=== PATIENT | male | born 1945 | race Caucasian/White ===

== ENCOUNTER → 2018-10-17 | Outpatient (CLI) | payer MEDICARE ==
--- NOTE | 2018-10-17 14:48 | US ---
EXAMINATION TYPE: US kidneys/renal and bladder DATE OF EXAM: 10/17/2018 COMPARISON: NONE CLINICAL HISTORY: N40.0 benign prostatic hyperplasia. EXAM MEASUREMENTS: Right Kidney: 12.4 x 5.7 x 5.2 cm Left Kidney: 12.2 x 5.4 x 5.0 cm Right Kidney: No hydronephrosis. Cystic area visualized 4.1 x 3.6 x 4.0 cm Left Kidney: No hydronephrosis. Cystic area mid pole measuring 0.8, possible peripelvic cyst Bladder: wnl Bilateral Jets seen: Yes Minimal cortical renal thinning bilaterally. There is no evidence for hydronephrosis at this point in time. No nephrolithiasis is seen. The urinary bladder is anechoic. Bilateral ureteral jets are se en. Prostate gland is enlarged and heterogenous although incompletely visualized on this examination. IMPRESSION: No hydronephrosis or nephrolithiasis. Bilateral renal cysts are seen that appear simple. Incidental n oted heterogenous and enlarged prostate gland, only partially visualized.
== END | disposition home or self-care (01) ==
LOC: RADUSWWP 13:14
PROVIDERS: ATTEND Internal Medicine
DX: N28.1 Cyst of kidney, acquired (principal); R31.9 Hematuria, unspecified
CPT/HCPCS: 76770

== ENCOUNTER 2019-01-24 08:23 | Day surgery (SDC) | payer MEDICARE ==
[2019-01-22 11:52] VITALS: BMI 32.2
[~2019-01-24 08:23] MED LIST: LACTATED RINGERS 1,000 ML IV SCH; LIDOCAINE 1% 20 ML VIAL (10MG/ML) FOR IV START INTRADERMA PRN
[2019-01-24 09:12] VITALS: TEMP 97.4
--- NOTE | 2019-01-24 09:44 | P.PCN ---
Date of Procedure: 01/24/19 Procedure(s) Performed: BRIEF HISTORY: Patient is a 73-year-old pleasant male scheduled for an elective colonoscopy as a part of screening for colorectal neoplasia. PROCEDURE PERFORMED: Colonoscopy with biopsy. PREOPERATIVE DIAGNOSIS: Screening for colon cancer. IV sedation per Anesthesia. PROCEDURE: After informed consent was obtained, the patient, was brought into the endoscopy unit. IV sedation was administered by Anesthesia under continuous monitoring. Digital rectal examination was normal. Initially the Olympus CF-160 flexible video colonoscope was then inserted in the rectum, gradually advanced into the cecum without any difficulty. Careful examination was performed as the scope was gradually being withdrawn. Ileocecal valve and the appendiceal orifice were visualized and appeared normal. Prep was excellent. Mucosa of the cecum, ascending colon appeared normal. In the hepatic flexure there was a 2-3 mm sessile polyp removed by cold biopsy. In the transverse colon there was another 3 mm polyp that was removed by cold biopsy. Rest of the transverse colon, descending colon, sigmoid colon, and rectum appeared normal. Scattered sigmoid diverticulosis seen. Retroflexion was performed in the rectum and monitor were seen. The patient tolerated the procedure well. IMPRESSION: 2-3 mm hepatic flexure polyps status post removal by cold biopsy 3 mm transverse colon polyp status post removal by cold biopsy Scattered sigmoidal diverticulosis Small internal hemorrhoids. RECOMMENDATIONS: Findings of this examination were discussed with the patient is well as his family. He was advised to follow with the biopsy results. If the biopsy shows an adenoma he can have a repeat colonoscopy in 5 years
[2019-01-24 10:33] VITALS: BP 133/82; PULSE 53; RESP 16
== END 2019-01-24 10:33 | disposition home or self-care (01) ==
LOC: ORWHC2ENDO 08:23
PROVIDERS: ATTEND Internal Medicine Gastroenterology
DX: Z12.11 Encounter for screening for malignant neoplasm of colon (principal); D12.3 Benign neoplasm of transverse colon; K57.30 Diverticulosis of large intestine without perforation or abscess without bleeding; K64.8 Other hemorrhoids; I10 Essential (primary) hypertension; E78.5 Hyperlipidemia, unspecified; Z79.899 Other long term (current) drug therapy; Z88.2 Allergy status to sulfonamides
CPT/HCPCS: 45380; 88305

== ENCOUNTER → 2019-03-30 | Outpatient (CLI) | payer MEDICARE ==
--- NOTE | 2019-03-31 16:33 | US ---
EXAMINATION TYPE: US kidneys/renal and bladder DATE OF EXAM: 03/30/2019 COMPARISON: US CLINICAL HISTORY: R31.9 Hematuria. Pt states microscopic hematuria EXAM MEASUREMENTS: Right Kidney: 10.9 x 5.9 x 5.8 cm Left Kidney: 12.0 x 5.3 x 5.0 cm Right Kidney: Minimal cortical thinning, cyst mid/lateral= 5.2 x 3.3 x 4.4 cm Left Kidney: Minimal cortical thinning Possible parapelvic cyst mid= 1.2 x 1.1 x 1.5 cm Bladder: wnl Bilateral Jets seen: Yes There is no evidence for hydronephrosis at this point in time. No nephrolithiasis is seen. No solid masses are identified. The urinary bladder is anechoic. Bilateral ureteral jets are seen. IMPRESSION: Renal cortical thinning. Parapelvic cyst left kidney. Simple cyst midpole right kidney
== END | disposition home or self-care (01) ==
LOC: RADUSWWP 15:52
PROVIDERS: ATTEND Internal Medicine
DX: N28.1 Cyst of kidney, acquired (principal); N26.1 Atrophy of kidney (terminal)
CPT/HCPCS: 76770

== ENCOUNTER → 2022-06-30 | Outpatient (CLI) | payer MEDICARE ==
[2022-06-30 11:05] LABS: Basophils # (A) 0.03 X 10*3/uL (0.00-0.10); Basophils % (A) 0.5 %; HCT 46.8 % (39.6-50.0); HGB 15.7 g/dL (13.0-17.0); Immature Grans, Automated 0.5 %; Lymphocytes # (A) 1.93 X 10*3/uL (0.90-5.00); Lymphocytes % (A) 29.1 %; MCH 30.6 pg (27.0-32.0); MCHC 33.5 g/dL (32.0-37.0); MCV 91.2 fL (80.0-97.0); Mean Platelet Volume 10.1 fL (9.5-12.2); Monocytes # (A) 0.58 X 10*3/uL (0.20-1.00); Monocytes % (A) 8.7 %; NRBC Per 100 WBC 0 /100 WBCS (0.0-0.0); Neutrophils # (A) 3.86 X 10*3/uL (1.80-7.70); Neutrophils % (A) 58.2 %; Platelet Count 213 X 10*3/uL (140-440); RBC 5.13 X 10*6/uL (4.40-5.60); WBC 6.63 X 10*3/uL (4.50-10.00)
[2022-06-30 11:39] LABS: ALT 58 U/L (10-49); AST 33 U/L (14-35); African American GFR (CKD) 94.5 (60.0-200.0); Albumin 4.3 g/dL (3.8-4.9); Albumin/Globulin Ratio 1.48 (1.60-3.17); Alkaline Phosphatase 68 U/L (41-126); BUN/Creat Ratio 20.89 Ratio (12.00-20.00); Blood Urea Nitrogen 18.8 mg/dL (9.0-27.0); Calcium 9.4 mg/dL (8.7-10.3); Carbon Dioxide 25.4 mmol/L (20.0-27.5); Chloride 105 mmol/L (96-109); Chol/HDL Ratio 2.78 Ratio; Globulin 2.9 g/dL (1.6-3.3); Glucose 107 mg/dL (70-110); LDL Cholesterol,Calculated 76.6 mg/dL (0.0-131.0); Non-African American GFR(CKD) 81.5 (60.0-200.0); Potassium 3.9 mmol/L (3.5-5.5); Sodium 140 mmol/L (135-145); Total Protein 7.2 g/dL (6.2-8.2)
== END | disposition home or self-care (01) ==
LOC: LABWHC1 07:50
PROVIDERS: ATTEND Internal Medicine Geriatric Medicine
DX: E03.9 Hypothyroidism, unspecified (principal); E78.2 Mixed hyperlipidemia; D64.9 Anemia, unspecified
CPT/HCPCS: 36415; 80053; 80061; 84439; 84443; 85025

== ENCOUNTER 2022-08-03 16:10 | Emergency (ER) | payer MEDICARE ==
[2022-08-03 16:19] VITALS: TEMP 98.2
[2022-08-03] MEDS ORDERED: ONDANSETRON 4 MG/2 ML VIAL IVP STA (16:37)
[2022-08-03] MEDS ORDERED: MECLIZINE 12.5 MG TAB PO STA (16:37)
--- NOTE | 2022-08-03 16:41 | ED ---
Dizziness HPI - General Chief Complaint: Dizziness Stated Complaint: vertigo Time Seen by Provider: 08/03/22 16:30 Source: patient Mode of arrival: EMS Limitations: no limitations - History of Present Illness Initial Comments: This patient is a 77-year-old man who presents with complaint of acute onset of vertigo sensation. He states that it was approximately 2:30. He had gone and picked up his mail from the mailbox. He states that he was standing in the room when he developed a severe feeling of dizziness. He noticed it was better when he sat down, worse if he attempted to move his head. He did have accompanying nausea and vomiting. Patient denies pain anywhere. Denies headache or neurologic symptoms other than the dizziness/vertigo. MD Complaint: other Onset/Timin -: hour(s) Timing: sudden onset Description: sense of movement, off-balance, difficulty walking, nausea History of Same: No History of Trauma: No Severity: severe Improves With: remaining still Worsens With: movement - Related Data Home Medications Medication Instructions Recorded Confirmed Atorvastatin [Lipitor] 10 mg PO HS 01/22/19 08/03/22 Cetirizine HCl [Zyrtec ODT] 10 mg PO DAILY 01/22/19 08/03/22 Enalapril/Hydrochlorothiazide 1 tab PO DAILY 01/22/19 08/03/22 [Enalapril-Hctz 10-25 mg Tablet] Finasteride [Proscar] 5 mg PO DAILY 08/03/22 08/03/22 Fluticasone Nasal [place] [Flonase 1 spray EA NOSTRIL DAILY 08/03/22 08/03/22 Nasal [place]] Olopatadine HCl [Pataday Once 1 drop BOTH EYES DAILY 08/03/22 08/03/22 Daily Relief] Previous Rx's Medication Instructions Recorded Meclizine [Antivert] 25 mg PO TID PRN #15 tab 08/03/22 Ondansetron Odt [Zofran ODT] 4 mg PO Q8HR PRN #10 tab 08/03/22 Allergies Allergy/AdvReac Type Severity Reaction Status Date / Time Sulfa (Sulfonamide Allergy Unknown Verified 08/03/22 16:55 Antibiotics) Childhood Review of Systems ROS Statement: Those systems with pertinent positive or pertinent negative responses have been documented in the HPI. ROS Other: All systems not noted in ROS Statement are negative. Constitutional: Denies: fever, chills Eyes: Denies: eye pain, vision change Respiratory: Denies: cough, dyspnea Cardiovascular: Denies: chest pain, palpitations, edema, syncope Gastrointestinal: Reports: nausea, vomiting. Denies: abdominal pain, diarrhea, hematemesis Genitourinary: Denies: dysuria Musculoskeletal: Denies: back pain Skin: Denies: rash Neurological: Reports: vertigo. Denies: headache, weakness, numbness Past Medical History Past Medical History: Hyperlipidemia, Hypertension, Osteoarthritis (OA) History of Any Multi-Drug Resistant Organisms: None Reported Past Surgical History: Tonsillectomy Additional Past Surgical History / Comment(s): CATARACT SURGERY BILATERAL WITH IMPLANTS Past Anesthesia/Blood Transfusion Reactions: No Reported Reaction Past Psychological History: No Psychological Hx Reported Smoking Status: Never smoker Past Alcohol Use History: Occasional Past Drug Use History: None Reported - Past Family History Mother Family Medical History: No Reported History Brother(s) Family Medical History: Pulmonary Embolus Father Family Medical History: Cancer Additional Family Medical History / Comment(s): LYPHOMA General Exam Limitations: no limitations General appearance: alert, in no apparent distress Head exam: Present: atraumatic, normocephalic Eye exam: Present: normal appearance, PERRL, EOMI. Absent: scleral icterus, conjunctival injection Neck exam: Present: normal inspection, full ROM. Absent: meningismus Respiratory exam: Present: normal lung sounds bilaterally. Absent: respiratory distress, wheezes, rales, rhonchi, stridor Cardiovascular Exam: Present: regular rate, normal rhythm, normal heart sounds. Absent: systolic murmur, diastolic murmur, rubs, gallop GI/Abdominal exam: Present: soft. Absent: distended, tenderness, guarding, rebound, rigid, mass Extremities exam: Present: normal inspection, normal capillary refill. Absent: pedal edema, calf tenderness Back exam: Present: normal inspection Neurological exam: Present: alert, oriented X3, CN II-XII intact. Absent: motor sensory deficit Skin exam: Present: warm, dry, intact, normal color. Absent: rash Course Vital Signs 08/03/22 08/03/22 08/03/22 16:11 18:00 19:17 Temperature 98.2 F Pulse Rate 62 59 L 61 Respiratory 18 18 16 Rate Blood Pressure 191/95 151/84 154/81 O2 Sat by Pulse 99 97 98 Oximetry 08/03/22 08/03/22 08/03/22 19:21 20:00 21:00 Temperature Pulse Rate 61 61 61 Respiratory 11 L Rate Blood Pressure 154/81 148/91 145/85 O2 Sat by Pulse 99 98 97 Oximetry 08/03/22 22:00 Temperature Pulse Rate Respiratory Rate Blood Pressure 142/76 O2 Sat by Pulse Oximetry EKG Findings - EKG Results: EKG: interpreted by ERMD, sinus rhythm (Rate 63 bpm), normal axis, normal QRS, normal ST/T - Dysrhythmias: Sinus rhythms and dysrhythmias: sinus rhythm - Blocks, [place], Hypertrophy, ST Abn: AV and intraventricular conduction: 1 AV block Medical Decision Making - Medical Decision Making The patient had CT angiography of the brain and neck, which I interpreted as not showing vertebrobasilar occlusion The patient had chest x-ray which I interpreted as being negative for acute infiltrate, pneumothorax, congestive heart failure Was pt. sent in by a medical professional or institution (, PA, HEAD OF ACQUISITIONS, urgent care, hospital, or long-term...) When possible be specific @ -[No] Did you speak to anyone other than the patient for history (EMS, parent, family, police, friend...)? What history was obtained from this source @ -[No] Did you review nursing and triage notes (agree or disagree)? Why? @ -[I reviewed and agree with nursing and triage notes] Were old charts reviewed (outside hosp., previous admission, EMS record, old EKG, old radiological studies, urgent care reports/EKG's, long-term records)? Report findings @ -[No old charts were reviewed] Differential Diagnosis (chest pain, altered mental status, abdominal pain women, abdominal pain men, vaginal bleeding, weakness, fever, dyspnea, syncope, he adache, dizziness, GI bleed, back pain, seizure, CVA, palpatations, mental health, musculoskeletal)? @ -[Differential Dizziness: Benign paroxysmal positional Vertigo, Menieres disease, otitis media, acoustic neuroma, vertebrobasilar insufficiency, cerebellar stroke, encephalitis, hypovolemic, arrhythmia, coronary artery syndrome, anemia, this is not meant to be an all-inclusive list EKG interpreted by me (3pts min.). @ -[As above] X-rays interpreted by me (1pt min.). @ -[As above CT interpreted by me (1pt min.). @ -[As above U/S interpreted by me (1pt. min.). @ -[None done] What testing was considered but not performed or refused? (CT, X-rays, U/S, labs)? Why? @ -[None] What meds were considered but not given or refused? Why? @ -[None] Did you discuss the management of the patient with other professionals (professionals i.e. DrAnthony, PA, HEAD OF ACQUISITIONS, lab, RT, psych nurse, social science manager, senior professional services consultant, teacher, campus security officer, case checker)? Give summary @ -[No] Was smoking cessation discussed for >3mins.? @ -[No] Was critical care preformed (if so, how long)? @ -[No] Were there social determinants of health that impacted care today? How? (Homelessness, low income, unemployed, alcoholism, drug addiction, transportation, low edu. Level, literacy, decrease access to med. care, [facility], rehab)? @ -[No] Was there de-escalation of care discussed even if they declined (Discuss DNR or withdrawal of care, Hospice)? DNR status @ -[No] What co-morbidities impacted this encounter? (DM, HTN, Smoking, COPD, CAD, Cancer, CVA, ARF, Chemo, Hep., AIDS, mental health diagnosis, sleep apnea, morbid obesity)? @ -[None] Was patient admitted / discharged? Hospital course, mention meds given and route, prescriptions, significant lab abnormalities, going to OR and other pertinent info. @ -[The patient is 77-year-old man presenting with acute onset vertigo. The workup here not revealing definite etiology. The patient did have relief of symptoms with medication and would like to go home. He will follow-up to have further evaluation by specialists. We discussed the appropriate further care and follow-up as well as return parameters. Undiagnosed new problem with uncertain prognosis? @ -[No] Drug Therapy requiring intensive monitoring for toxicity (Heparin, Nitro, Insulin, Cardizem)? @ -[No] Were any procedures done? @ -[No] Diagnosis/symptom? @ -[Acute vertigo Acute, or Chronic, or Acute on Chronic? @ -[default] Uncomplicated (without systemic symptoms) or Complicated (systemic symptoms)? @ -[Uncomplicated Side effects of treatment? @ -[No] Exacerbation, Progression, or Severe Exacerbation? @ -[No] Poses a threat to life or bodily function? How? (Chest pain, [place], [place], pneumonia, PE, COPD, DKA, ARF, appy, cholecystitis, CVA, Diverticulitis, Homicidal, Suicidal, threat to staff... and all critical care pts) @ -[No] - Lab Data Result diagrams: 08/03/22 17:55 08/03/22 16:50 Lab Results 08/03/22 08/03/22 08/03/22 Range/Units 16:50 16:50 16:50 WBC (3.8-10.6) k/uL RBC (4.30-5.90) m/uL Hgb (13.0-17.5) gm/dL Hct (39.0-53.0) % MCV (80.0-100.0) fL MCH (25.0-35.0) pg MCHC (31.0-37.0) g/dL RDW (11.5-15.5) % Plt Count (150-450) k/uL MPV Neutrophils % % Lymphocytes % % Monocytes % % Eosinophils % % Basophils % % Neutrophils # (1.3-7.7) k/uL Lymphocytes # (1.0-4.8) k/uL Monocytes # (0-1.0) k/uL Eosinophils # (0-0.7) k/uL Basophils # (0-0.2) k/uL Sodium 140 (137-145) mmol/L Potassium 3.9 (3.5-5.1) mmol/L Chloride 106 (98-107) mmol/L Carbon Dioxide 23 (22-30) mmol/L Anion Gap 11 mmol/L BUN 18 (9-20) mg/dL Creatinine 0.73 (0.66-1.25) mg/dL Est GFR (CKD-EPI)AfAm >90 (>60 ml/min/1.73 sqM) Est GFR (CKD-EPI)NonAf 89 (>60 ml/min/1.73 sqM) Glucose 103 H (74-99) mg/dL Lactic Ac Sepsis Rflx Plasma Lactic Acid Rick 2.3 H* (0.7-2.0) mmol/L Calcium 9.1 (8.4-10.2) mg/dL Total Bilirubin 1.2 (0.2-1.3) mg/dL AST 47 (17-59) U/L ALT 55 H (4-49) U/L Alkaline Phosphatase 65 (38-126) U/L Troponin I 0.022 (0.000-0.034) ng/mL Total Protein 7.4 (6.3-8.2) g/dL Albumin 4.2 (3.5-5.0) g/dL 08/03/22 08/03/22 08/03/22 Range/Units 17:30 17:55 19:51 WBC 11.2 H (3.8-10.6) k/uL RBC 4.91 (4.30-5.90) m/uL Hgb 15.8 (13.0-17.5) gm/dL Hct 45.0 (39.0-53.0) % MCV 91.6 (80.0-100.0) fL MCH 32.1 (25.0-35.0) pg MCHC 35.1 (31.0-37.0) g/dL RDW 12.7 (11.5-15.5) % Plt Count 202 (150-450) k/uL MPV 8.0 Neutrophils % 86 % Lymphocytes % 9 % Monocytes % 4 % Eosinophils % 1 % Basophils % 0 % Neutrophils # 9.6 H (1.3-7.7) k/uL Lymphocytes # 1.0 (1.0-4.8) k/uL Monocytes # 0.5 (0-1.0) k/uL Eosinophils # 0.1 (0-0.7) k/uL Basophils # 0.0 (0-0.2) k/uL Sodium (137-145) mmol/L Potassium (3.5-5.1) mmol/L Chloride (98-107) mmol/L Carbon Dioxide (22-30) mmol/L Anion Gap mmol/L BUN (9-20) mg/dL Creatinine (0.66-1.25) mg/dL Est GFR (CKD-EPI)AfAm (>60 ml/min/1.73 sqM) Est GFR (CKD-EPI)NonAf (>60 ml/min/1.73 sqM) Glucose (74-99) mg/dL Lactic Ac Sepsis Rflx Y Plasma Lactic Acid Rick 1.7 (0.7-2.0) mmol/L Calcium (8.4-10.2) mg/dL Total Bilirubin (0.2-1.3) mg/dL AST (17-59) U/L ALT (4-49) U/L Alkaline Phosphatase (38-126) U/L Troponin I (0.000-0.034) ng/mL Total Protein (6.3-8.2) g/dL Albumin (3.5-5.0) g/dL Disposition Clinical Impression: Vertigo Disposition: HOME SELF-CARE Condition: Good Instructions (If sedation given, give patient instructions): Vertigo (ED) Prescriptions: Meclizine [Antivert] 25 mg PO TID PRN #15 tab PRN Reason: Vertigo Ondansetron Odt [Zofran ODT] 4 mg PO Q8HR PRN #10 tab PRN Reason: Nausea Is patient prescribed a controlled substance at d/c from ED?: No Referrals: None,Stated [REFERRING] - 1-2 days
[2022-08-03 17:30] LABS: ALT 55 U/L (4-49); AST 47 U/L (17-59); African American GFR (CKD) >90 (>60 ml/min/1.73 sqM); Albumin 4.2 g/dL (3.5-5.0); Alkaline Phosphatase 65 U/L (38-126); Anion Gap 11 mmol/L; Blood Urea Nitrogen 18 mg/dL (9-20); Calcium 9.1 mg/dL (8.4-10.2); Carbon Dioxide 23 mmol/L (22-30); Chloride 106 mmol/L (98-107); Non-African American GFR(CKD) 89 (>60 ml/min/1.73 sqM); Potassium 3.9 mmol/L (3.5-5.1); Sodium 140 mmol/L (137-145); Total Bilirubin 1.2 mg/dL (0.2-1.3); Total Protein 7.4 g/dL (6.3-8.2)
[2022-08-03 17:32] LABS: Glucose 103 mg/dL (74-99)
[2022-08-03 18:08] LABS: Basophils % (A) 0 %; Eosinophils # (A) 0.1 k/uL (0-0.7); Eosinophils % (A) 1 %; HGB 15.8 gm/dL (13.0-17.5); Lymphocytes % (A) 9 %; MCH 32.1 pg (25.0-35.0); MCHC 35.1 g/dL (31.0-37.0); MCV 91.6 fL (80.0-100.0); Monocytes # (A) 0.5 k/uL (0-1.0); Monocytes % (A) 4 %; Neutrophils # (A) 9.6 k/uL (1.3-7.7); Neutrophils % (A) 86 %; Platelet Count 202 k/uL (150-450); RBC 4.91 m/uL (4.30-5.90); RDW 12.7 % (11.5-15.5); WBC 11.2 k/uL (3.8-10.6)
--- NOTE | 2022-08-03 18:25 | XR ---
EXAMINATION TYPE: XR chest 2V DATE OF EXAM: 08/03/2022 COMPARISON: None HISTORY: 77-year-old male with vertigo TECHNIQUE: AP and lateral views FINDINGS: Heart is mildly enlarged. Hyperinflation. Some strandy atelectasis in the lower lungs. Mild interstit ial prominence.-Mid thoracic spine. No consolidation or pleural effusion. IMPRESSION: Mild cardiomegaly and COPD. No definite acute process.
--- NOTE | 2022-08-03 19:16 | CT ---
EXAMINATION TYPE: CT head without contrast CT angio head neck DATE OF EXAM: 08/03/2022 COMPARISON: None HISTORY: 77-year-old male acute vertigo TECHNIQUE: Contiguous axial scanning of the head performed without IV contrast. Coronal and sagittal reconstructions. Subsequent scanning of the head and neck without and with IV Contrast, patient injec rissa with 65 mL of Isovue 370. Coronal/sagittal MIP reconstructions performed. 3-D reconstructions gen erated on a dedicated independent workstation. CT DLP: 1918.8 mGycm Automated exposure control for dose reduction was used. FINDINGS: NONCONTRAST CT HEAD: Mild generalized supratentorial volume loss. Secondary mild prominence to the ventricular system. Old lacunar infarct left caudate head and left basal ganglia. Atherosclerotic calcifications carotid sip hons. No evidence for acute intracranial hemorrhage, acute ischemic change, mass, mass effect, midline shif t, or extra-axial fluid collection. No effacement of cerebral sulci or basal subarachnoid cisterns. G ray-white matter differentiation is maintained. Undulating nasal septum. 7 mm mucosal retention cyst anterior left maxillary sinus. Trace mucosal thi ckening ethmoid air cells. Mastoid air cells are well pneumatized. Orbital globes are intact. CTA HEAD: The vertebral and basilar artery as well as the remainder of the posterior circulation is patent. The dural venous sinuses are patent. Atherosclerotic calcifications throughout the carotid siphon veins with a mild segmental narrowing. No significant stenosis or arterial occlusion seen. There is 3 mm fusiform prominence along the A3 segment anterior cerebral artery, axial image 65. Foll ow-up MRA in 3 months to reassess. Otherwise, no aneurysmal changes seen. CTA NECK: Conventional arch vessel branching anatomy. Biapical pleural-parenchymal scarring. The vertebral arteries are codominant and patent throughout their course. The right common carotid artery is patent. Mild atherosclerotic calcifications right carotid bulb with mild, less than 40% proximal right ICA na rrowing. NASCET criteria is utilized. The left common carotid artery is patent. Mild atherosclerotic changes at the left carotid bifurcation without any significant narrowing of the proximal left ICA. Moderate spondylotic change throughout the cervical spine. IMPRESSION: NONCONTRAST CT HEAD: 1. MILD CEREBRAL ATROPHY. 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 NO ACUTE INTR ACRANIAL ABNORMALITY SEEN. CT ANGIOGRAPHY HEAD: 2. NO LARGE VESSEL INTRACRANIAL ARTERIAL OCCLUSION OR SIGNIFICANT STENOSIS. 3. POSSIBLE 3 MM FUSIFORM ANEURYSM ALONG THE UPPER ANTERIOR CEREBRAL ARTERY, AXIAL IMAGE 65. RECOMMEN D THREE-MONTH FOLLOW-UP MR ANGIOGRAPHY TO REASSESS. CT ANGIOGRAPHY NECK: 4. MILD ATHEROSCLEROTIC CHANGES AT THE RIGHT GREATER THAN LEFT BIFURCATIONS. MILD, LESS THAN 40% PROX IMAL RIGHT ICA STENOSIS. 5. NO SIGNIFICANT VERTEBRAL ARTERY OR LEFT CAROTID ARTERY STENOSIS SEEN.
[2022-08-03 19:19] VITALS: PULSE 61
[2022-08-03] MEDS ORDERED: ONDANSETRON ODT 4 MG TAB PO STA (21:46)
[2022-08-03 22:05] VITALS: BP 142/76; RESP 11
== END 2022-08-03 22:20 | disposition home or self-care (01) ==
LOC: EC 16:10 → SUPCPDRO 16:10 → EC 22:20
DX: R42 Dizziness and giddiness (principal); I10 Essential (primary) hypertension; E78.5 Hyperlipidemia, unspecified; J44.9 Chronic obstructive pulmonary disease, unspecified; Z79.899 Other long term (current) drug therapy; Z88.1 Allergy status to other antibiotic agents; Z88.2 Allergy status to sulfonamides
CPT/HCPCS: 36415; 93005; 80053; 83605; 84484; 85025; 71046; 70496; 70498; 99285; 96374; J2405; Q9967

== ENCOUNTER → 2022-08-24 | Outpatient (CLI) | payer MEDICARE ==
--- NOTE | 2022-08-24 18:36 | MR ---
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 IV Contrast: None Findings: Vertebral arteries: The vertebral arteries are patent. Vertebral arteries are: Codominant. Basilar artery: The basilar artery is intact. The basilar artery bifurcation is normal. Internal Carotid arteries: Aneurysm dilation of the right carotid siphon aneurysm measuring up to 3 x 2 mm just prior to the bifurcation of the MCA and MARNIE. The right internal carotid artery is unremark able. MARNIE: Patent with no evidence of aneurysm. ACOM: Present without evidence of aneurysm. MCA: Patent with no evidence of aneurysm. WEB MARKETING SPECIALIST: Patent with no evidence of aneurysm. PCOM: Hypoplastic bilaterally. Left internal auditory canal type II vascular loop. There is enhancing right cerebellar lesion which will be better characterized on MRI brain same day. IMPRESSION: 1. No evidence of significant stenosis. 2. Anterior cerebral artery suspected aneurysm is non the [id number]. Consider follow-up CTA. 3. 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 4. Left internal auditory canal type II vascular loop.
--- NOTE | 2022-08-25 13:09 | MR ---
EXAMINATION TYPE: MR brain wo/w con DATE OF EXAM: 08/24/2022 5:52 PM CLINICAL INDICATION:Male, 77 years old with history of I67.1 CEREBRAL ANEURYSM, NONRUPTURED; Vertigo, Abn CT done 08-03-2022 Cerebral aneurysm, non-ruptured COMPARISON: CT Angio head neck 08/03/2022 TECHNIQUE: Multi planar, multi sequence imaging was performed through the brain including: T1, T2, In version recovery, susceptibility weighted imaging and gradient echo imaging and Diffusion weighted im aging. The patient was then given intravenous contrast and multi planar, T1 fat-saturation images wer e obtained. IV Contrast: 9.5 cc Gadavist FINDINGS: Irregular enhancement within the right cerebellar hemisphere with gyriform appearance. Areas also inc lude the right vermis which appears to match the cerebral cortex somewhat in appearance/morphology. T he susceptibility weighted imaging within this region along the blooming artifact along the surface o f the cerebellum suspicious versus hemosiderin deposition. Postcontrast enhancement around the edges with possibly small areas of central enhancement. There is no evidence for restricted diffusion in th is region. There is high FLAIR signal surrounding this region also in a somewhat gyriform pattern. Cerebral atrophy with proportional dilation of ventricular system. Diffusion-weighted imaging shows n o evidence of restricted diffusion to suggest acute/subacute infarct. Intracranial arterial flow void s are maintained. Midline structures show no abnormality. Scattered foci of high T2 signal intensity are seen within the periventricular white matter. The bone marrow signal is within normal limits. Paranasal sinuses and mastoid air cells: Mild scattered paranasal sinus disease. Visualized orbits: Bilaterally aphakia. IMPRESSION: 1. Abnormal enhancement within the right cerebellar hemisphere with a gyriform pattern with additiona l hemosiderin deposition on susceptibility weighted imaging. All these findings favor sequela of prio r ischemic event. Short-term follow-up 1 month with MRI with IV contrast recommended to ensure stabil ity. Findings are felt to be less likely tumor given no findings present on 08/03/2022 CT. 2. Nonspecific white matter changes, likely related to small vessel ischemic disease
== END | disposition home or self-care (01) ==
LOC: RADMRIMAIN 16:16
PROVIDERS: ATTEND Internal Medicine Geriatric Medicine
DX: I72.0 Aneurysm of carotid artery (principal); G93.89 Other specified disorders of brain; R90.82 White matter disease, unspecified
CPT/HCPCS: 70544; 70553; A9585

== ENCOUNTER → 2022-10-28 | Outpatient (CLI) | payer MEDICARE ==
[2022-10-28 15:17] LABS: ALT 47 U/L (10-49); AST 28 U/L (14-35); Albumin 4.7 d/dL (3.8-4.9); Albumin/Globulin Ratio 1.74 Ratio (1.60-3.17); Alkaline Phosphatase 73 U/L (41-126); Blood Urea Nitrogen 19.5 mg/dL (9.0-27.0); Carbon Dioxide 26.5 mmol/L (21.6-31.8); Chloride 106 mmol/L (96-109); Creatine Kinase 73 U/L (35-257); Globulin 2.7 d/dL (1.6-3.3); Glucose 107 mg/dL (70-110); LDL Cholesterol,Calculated 79.9 mg/dL (0.0-131.0); Potassium 4.5 mmol/L (3.5-5.5); Sodium 143 mmol/L (135-145); Total Bilirubin 0.8 mg/dL (0.3-1.2); Total Protein 7.4 d/dL (6.2-8.2)
[2022-10-28 15:24] LABS: Hepatitis A Antibody IgM Nonreactive; Hepatitis B Core IgM Nonreactive; Hepatitis B Surface Antigen Nonreactive; Hepatitis C IgG Antibody Nonreactive
== END | disposition home or self-care (01) ==
LOC: LABWHC1 08:11
PROVIDERS: ATTEND Internal Medicine Geriatric Medicine
DX: E78.2 Mixed hyperlipidemia (principal); N40.0 Benign prostatic hyperplasia without lower urinary tract symptoms; E03.9 Hypothyroidism, unspecified; R94.5 Abnormal results of liver function studies
CPT/HCPCS: 36415; 80053; 80061; 80074; 82550; 83036; 84153; 84443

== ENCOUNTER → 2023-02-22 | Outpatient (CLI) | payer MEDICARE ==
[2023-02-22 09:19] LABS: African American GFR (CKD) >90 (>60 ml/min/1.73 sqM); Blood Urea Nitrogen 23 mg/dL (9-20); Non-African American GFR(CKD) 83 (>60 ml/min/1.73 sqM)
--- NOTE | 2023-03-01 04:16 | CT ---
EXAMINATION TYPE: CT urogram wo/w con CT DLP: 3611 mGycm, Automated exposure control for dose reduction was used. DATE OF EXAM: 02/22/2023 10:05 AM COMPARISON: None. CLINICAL INDICATION:Male, 77 years old with history of R31.0 HEMATURIA; PHH, Hematuria, hx enlarged p rostate. TECHNIQUE: CT urogram with imaging of the abdomen and pelvis without contrast, after IV contrast 1 minute delay through the kidneys, then imaging of abdomen and pelvis at 4 minute and 10 minute delays. Coronal and sagittal reformats were performed. 2D and 3D reconstructions are performed to assist visualization o f the urinary tract on a separate workstation. Contrast used:100 mL of Isovue 300 with IV Contrast, Oral contrast used : None. FINDINGS: LOWER CHEST: No significant findings. Minimal bibasilar scarring or atelectasis. Heart appears mildly enlarged with probable small calcification in the region of the mitral valve. GENITOURINARY: No appreciable renal/ureteral calculi. No bladder calculi. Postcontrast, there appears to be mild cortical thinning. The kidneys are enhancing symmetrically. Th ere is a 5.8 cm cyst exophytic from the mid right renal pole. Partially exophytic nodule up to 1 cm f rom the upper pole towards Morison's pouch measures around 40 Hounsfield units without significant en hancement seen. Simple cyst in the apex of the right kidney measures 0.9 cm. Left kidney demonstrates multiple small parapelvic cysts. In the upper pole there are a couple of very tiny hypodensities whi ch are too small to fully characterize but most likely are cysts. Slightly farther inferiorly is a 0. 8 cm cyst. Just inferior and lateral there is a small ovoid hypodense nodule which is partially exoph ytic from the mid to upper pole left kidney which is about 1.3 cm in length and about 15 or so Hounsf ield units in attenuation, and does not show definite enhancement on later phases. Small cortical def ect towards the lower pole suggestive of remote injury. Kidneys concentrate and excrete contrast symmetrically. There are mildly prominent bilateral extraren al pelves and upper ureters seen, which taper to normal caliber bilaterally. There is no evidence of stricture or mass. The ureters are segmentally seen. The bladder is mildly distended and progressivel y fills with contrast, showing mild indentation along its base due to the enlarged prostate, otherwis e no definite polypoid or masslike filling defect is seen. OTHER ABDOMEN AND PELVIS: LIVER: Small focus of low-attenuation in the anterior liver along the fissure for ligamentum teres, m ost consistent with focal fat. Small hypodense lesions in the medial aspect of the lateral segment of the left hepatic lobe, and inferiorly in the right lobe, not fully characterized but very likely temo ign. Otherwise unremarkable hepatic parenchyma. The left lobe of the liver is relatively smaller and the right lobe is elongated craniocaudally measuring 18.3 cm, this may represent Valorie's lobe. GALLBLADDER AND BILE DUCTS: At least 2 gallstones are seen, the larger measures 6 mm. No gallbladder distention or inflammatory changes. PANCREAS: No acute abnormality. Mild fatty infiltration. A couple of calcifications along its course may be seen with chronic pancreatitis. SPLEEN: Unremarkable. ADRENAL GLANDS: Unremarkable. STOMACH AND BOWEL: Small hiatal hernia. The stomach and duodenum are unremarkable. No dilated distal small bowel is seen. There is a normal-appearing appendix seen inferior to the cecum coronal image 82 series 7. Some fluid contents seen in the right colon and transverse colon. There are multiple colo alejo diverticula seen in the descending colon and sigmoid, without clear evidence of diverticulitis. PERITONEUM/RETROPERITONEUM: No evidence of pneumoperitoneum or free fluid. VASCULATURE: Moderate atherosclerotic calcifications are present throughout the abdominal aorta and i ts branches. No evidence of aortic aneurysm. Calcific plaque with mild to moderate narrowing of the celiac axis, SMA, proximal renal arteries. Portal veins are enhancing. Splenic vein is patent. LYMPH NODES: No gross evidence for lymphadenopathy. REPRODUCTIVE: Prostate is enlarged measuring up to 4 cm transverse. There are multiple coarse calcifi cations within the parenchyma. Enlarged prostate mildly indents the base of the urinary bladder. SOFT TISSUE/BODY WALL: Tiny fat-containing umbilical hernia. MUSCULOSKELETAL: No acute osseous abnormalities. Moderate disc degeneration changes are present throu ghout the thoracolumbar spine. Degenerative grade 1 anterolisthesis of L3 on L4. Mild/moderate hip ar thropathy. Small sclerotic focus in the left hip could relate to bone island. No destructive osseous lesions are seen. IMPRESSION: 1. No evidence of urolithiasis or obstructive uropathy. 2. No convincing evidence of renal/urothelial neoplasm. 3. Multiple bilateral renal nodules, almost all appear to be simple cysts. Some are too small to shira acterize. One small lesion on the right is favored to be a complex/hemorrhagic cyst. 4. Enlarged prostate gland, as above. Please correlate clinically with PSA levels.
== END | disposition home or self-care (01) ==
LOC: RADCTMAIN 08:30
PROVIDERS: ATTEND Urology
DX: N40.0 Benign prostatic hyperplasia without lower urinary tract symptoms (principal); N28.89 Other specified disorders of kidney and ureter; R31.0 Gross hematuria
CPT/HCPCS: 82565; 84520; 74178; 36415; 74400; Q9967

== ENCOUNTER → 2023-07-13 | Outpatient (CLI) | payer MEDICARE ==
[2023-07-13 14:44] LABS: Basophils # (A) 0.02 X 10*3/uL (0.00-0.10); Basophils % (A) 0.3 %; Eosinophils # (A) 0.19 X 10*3/uL (0.04-0.35); Eosinophils % (A) 3.3 %; HCT 46.9 % (39.6-50.0); Lymphocytes # (A) 1.63 X 10*3/uL (0.90-5.00); MCH 30.8 pg (27.0-32.0); MCHC 34.1 g/dL (32.0-37.0); MCV 90.2 FL (80.0-97.0); Mean Platelet Volume 10.1 FL (9.5-12.2); Monocytes # (A) 0.52 X 10*3/uL (0.20-1.00); Monocytes % (A) 8.9 %; NRBC Per 100 WBC 0 X 10*3/uL (0.00-0.01); Neutrophils # (A) 3.45 X 10*3/uL (1.80-7.70); Neutrophils % (A) 59.2 %; Platelet Count 214 X 10*3/uL (140-440); RDW 12.8 % (11.5-14.5); WBC 5.83 X 10*3/uL (4.50-10.00)
[2023-07-13 15:12] LABS: ALT 43 U/L (10-49); AST 29 U/L (14-35); Albumin 4.3 g/dL (3.8-4.9); Albumin/Globulin Ratio 1.59 Ratio (1.60-3.17); Alkaline Phosphatase 70 U/L (41-126); Calcium 9.8 mg/dL (8.7-10.3); Carbon Dioxide 24.7 mmol/L (21.6-31.8); Chloride 107 mmol/L (96-109); Chol/HDL Ratio 3.03 Ratio; Globulin 2.7 g/dL (1.6-3.3); Glucose 124 mg/dL (70-110); LDL Cholesterol,Calculated 76.1 mg/dL (0.0-131.0); Potassium 4.7 mmol/L (3.5-5.5); Sodium 142 mmol/L (135-145); Total Bilirubin 0.7 mg/dL (0.3-1.2)
== END | disposition home or self-care (01) ==
LOC: LABWHC1 07:58
PROVIDERS: ATTEND Internal Medicine Geriatric Medicine
DX: Z00.00 Encounter for general adult medical examination without abnormal findings (principal); E78.2 Mixed hyperlipidemia; R73.9 Hyperglycemia, unspecified
CPT/HCPCS: 36415; 80053; 80061; 83036; 84443; 85025

== ENCOUNTER → 2023-09-12 | Outpatient (CLI) | payer MEDICARE ==
[2023-09-12 13:23] LABS: African American GFR (CKD) 83 (>60 ml/min/1.73 sqM); Blood Urea Nitrogen 28 mg/dL (9-20); Non-African American GFR(CKD) 72 (>60 ml/min/1.73 sqM)
--- NOTE | 2023-09-12 16:54 | CT ---
CTA head. HISTORY: Aneurysm follow-up. COMPARISON: 08/03/2022. TECHNIQUE: Multiple axial images are obtained through the head following the administration of IV con trast. Exam was performed according to the department CTA protocol. 3-D post processing was performed . FINDINGS: The small 2 to 3 mm fusiform aneurysm in the mid anterior cerebral artery is again seen and is stable . No other sizable aneurysm sacs or vascular malformations are identified. There is no occlusive dise ase. 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
== END | disposition home or self-care (01) ==
LOC: RADCTMAIN 12:26
PROVIDERS: ATTEND Neurological Surgery
DX: I67.1 Cerebral aneurysm, nonruptured (principal)
CPT/HCPCS: 82565; 84520; 70496; 36415; Q9967

== ENCOUNTER → 2023-12-12 | Outpatient (CLI) | payer MEDICARE ==
[2023-12-12 16:30] LABS: ALT 41 U/L (10-49); AST 28 U/L (14-35); Albumin 4.3 g/dL (3.8-4.9); Albumin/Globulin Ratio 1.54 Ratio (1.60-3.17); Alkaline Phosphatase 72 U/L (41-126); Blood Urea Nitrogen 21.6 mg/dL (9.0-27.0); Calcium 9.3 mg/dL (8.7-10.3); Carbon Dioxide 24.7 mmol/L (21.6-31.8); Chloride 105 mmol/L (96-109); Chol/HDL Ratio 2.63 Ratio; Globulin 2.8 g/dL (1.6-3.3); Glucose 104 mg/dL (70-110); Potassium 4.2 mmol/L (3.5-5.5); Prostate Specific Antigen 0.31 ng/mL (0.000-6.500); Sodium 141 mmol/L (135-145); T4, Free (Free Thyroxine) 1.26 ng/dL (0.80-1.80); Total Bilirubin 0.6 mg/dL (0.3-1.2); Total Protein 7.1 g/dL (6.2-8.2); VLDL Calculation 17.52 mg/dL (5.00-40.00)
[2023-12-12 17:09] LABS: Basophils # (A) 0.04 X 10*3/uL (0.00-0.10); Basophils % (A) 0.6 %; Eosinophils # (A) 0.21 X 10*3/uL (0.04-0.35); Eosinophils % (A) 3.3 %; HCT 45.1 % (39.6-50.0); HGB 15.3 g/dL (13.0-17.0); Lymphocytes # (A) 1.92 X 10*3/uL (0.90-5.00); MCH 31.7 pg (27.0-32.0); MCHC 33.9 g/dL (32.0-37.0); MCV 93.4 FL (80.0-97.0); Mean Platelet Volume 10.7 FL (9.5-12.2); Monocytes # (A) 0.71 X 10*3/uL (0.20-1.00); Monocytes % (A) 11.1 %; NRBC Per 100 WBC 0 X 10*3/uL (0.00-0.01); Neutrophils # (A) 3.48 X 10*3/uL (1.80-7.70); Neutrophils % (A) 54.5 %; Platelet Count 234 X 10*3/uL (140-440); RBC 4.83 X 10*6/uL (4.40-5.60); RDW 12.8 % (11.5-14.5); WBC 6.39 X 10*3/uL (4.50-10.00)
== END | disposition home or self-care (01) ==
LOC: LABWHC1 08:29
PROVIDERS: ATTEND Internal Medicine Geriatric Medicine
CPT/HCPCS: 36415; 80053; 80061; 83036; 84153; 84439; 84443; 85025

== ENCOUNTER → 2024-05-04 | Outpatient (CLI) | payer MEDICARE ==
[2024-05-04 11:42] LABS: INR 0.9 (<1.2); Partial Thromboplastin Time 24.6 sec (22.0-30.0); Prothrombin Time 10.6 sec (10.0-12.5)
[2024-05-04 18:09] LABS: Cardiolipin Ab IgG Interp Negative (Negative); Cardiolipin Ab IgM Interp Negative (Negative); Cardiolipin IgA Antibody 4.9 U/mL; Cardiolipin IgM Antibody <1.5 U/mL
[2024-05-07 13:05] LABS: APTT 40 Sec(s) (<43); Dilute Russell Viper Venom 36 Sec(s) (<44)
== END | disposition home or self-care (01) ==
LOC: LABWHC1 10:59
PROVIDERS: ATTEND Psychiatry & Neurology Neurology
DX: I63.9 Cerebral infarction, unspecified (principal); D68.9 Coagulation defect, unspecified; R41.3 Other amnesia
CPT/HCPCS: 36415; 81241; 82607; 83036; 83090; 84207; 85610; 85613; 85652; 85730; 86147